=== PATIENT | female | born 1955 | race African-American/Black ===

== ENCOUNTER 2019-05-26 17:31 | Emergency (ER) | payer MEDICARE, MEDICAID ==
[~2019-05-26] VITALS: Ht 165.1 cm; Wt 137.0 kg
[~2019-05-26 17:31] MED LIST: CARI350T28; DICL50TA6; HYDR-1348
[2019-05-26] MEDS ORDERED: HYDROCODONE/APAP 7.5/325MG 1 TAB TABLET PO ONE (19:30)
[2019-05-26] MEDS ORDERED: IBUPROFEN 800MG TABLET PO ONE (19:30)
[2019-05-26] MEDS ORDERED: GABAPENTIN 300MG CAPSULE PO ONE (19:30)
[2019-05-26 19:51] LABS: BASOPHILS % 1.2 % (0.0-2.0); EOSINOPHILS % 1.9 % (0.0-5.0); HEMATOCRIT. 37.8 % (36.0-48.0); HEMOGLOBIN. 12.9 g/dL (12.0-16.0); LYMPHOCYTES % 28.3 % (20.0-50.0); MEAN CORPUSCULAR HEMOGLOBIN 32.9 pg (28.0-32.0); MEAN PLATELET VOLUME 7.3 fl (7.4-10.4); MONOCYTES % 8.6 % (2.0-8.0); PLATELET 233 x1000/uL (130-400); RED BLOOD CELL COUNT 3.94 mill/uL (4.2-5.4); RED CELL DISTRIBUTION WIDTH 13.7 % (11.6-14.6)
[2019-05-26 20:10] LABS: CHLORIDE 106 mEq/L (98-107)
[2019-05-26 23:30] VITALS: BP 136/57
== END 2019-05-27 00:15 ==
LOC: ER 17:31
DX: G62.9 Polyneuropathy, unspecified (principal); M79.605 Pain in left leg; M79.602 Pain in left arm; E11.9 Type 2 diabetes mellitus without complications; I10 Essential (primary) hypertension; Z79.899 Other long term (current) drug therapy
CPT/HCPCS: 36415; 73080; 73590; 80053; 83880; 85025; 93970; 99285

== ENCOUNTER 2020-11-15 19:59 | Emergency (ER) | payer MEDICARE, MEDICAID ==
[~2020-11-15] VITALS: Ht 160 cm; Wt 173.0 kg
[2020-11-15 21:06] LABS: BASOPHILS % 0.6 % (0.0-2.0); EOSINOPHILS % 1.7 % (0.0-5.0); HEMATOCRIT. 37.2 % (36.0-48.0); HEMOGLOBIN. 12.7 g/dL (12.0-16.0); LYMPHOCYTES % 25.9 % (20.0-50.0); MEAN CORPUSCULAR HEMOGLOBIN 33.2 pg (28.0-32.0); MEAN CORPUSCULAR VOLUME 97.3 fL (81.0-99.0); MONOCYTES % 8.5 % (2.0-8.0); NEUTROPHILS % 63.3 % (40.0-76.0); PLATELET 293 x1000/uL (130-400); RED BLOOD CELL COUNT 3.83 mill/uL (4.2-5.4); RED CELL DISTRIBUTION WIDTH 13.9 % (11.6-14.6)
[2020-11-15 21:11] LABS: CHLORIDE 108 mEq/L (98-107)
[2020-11-15] MEDS ORDERED: ACETAMINOPHEN 325MG TABLET PO ONE (23:00)
[2020-11-16 04:25] VITALS: BP 116/53
== END 2020-11-16 04:46 ==
LOC: ER 19:59
DX: M79.672 Pain in left foot (principal); E11.9 Type 2 diabetes mellitus without complications; I10 Essential (primary) hypertension; Z86.73 Personal history of transient ischemic attack (TIA), and cerebral infarction without residual deficits
CPT/HCPCS: 36415; 71045; 80053; 83880; 84484; 85025; 93005; 93971; 99285

== ENCOUNTER 2022-02-27 13:13 | Emergency (ER) | payer MEDICARE, MEDICAID ==
[~2022-02-27] VITALS: Ht 162.6 cm; Wt 160.0 kg
[2022-02-27 16:05] LABS: BASOPHILS % 0.6 % (0.0-2.0); EOSINOPHILS % 0.8 % (0.0-5.0); HEMATOCRIT. 39.1 % (36.0-48.0); HEMOGLOBIN. 13.2 g/dL (12.0-16.0); LYMPHOCYTES % 25.5 % (20.0-50.0); MEAN CORPUSCULAR HEMOGLOBIN 32.3 pg (28.0-32.0); MEAN CORPUSCULAR VOLUME 95.7 fL (81.0-99.0); MEAN PLATELET VOLUME 7.7 fl (7.4-10.4); MONOCYTES % 7.4 % (2.0-8.0); NEUTROPHILS % 65.7 % (40.0-76.0); PLATELET 281 x1000/uL (130-400); RED BLOOD CELL COUNT 4.08 mill/uL (4.2-5.4); RED CELL DISTRIBUTION WIDTH 14.9 % (11.6-14.6)
[2022-02-27 16:14] LABS: CHLORIDE 105 mEq/L (98-107)
[2022-02-28] MEDS ORDERED: ACETAMINOPHEN 325MG TABLET PO ONE (03:00)
[2022-02-28 14:00] VITALS: BP 156/87
== END 2022-02-28 16:10 | disposition home or self-care (01) ==
LOC: ER 13:13
DX: R51.9 Headache, unspecified (principal); R53.1 Weakness; D64.9 Anemia, unspecified; F32.9 Major depressive disorder, single episode, unspecified; E11.9 Type 2 diabetes mellitus without complications; E78.00 Pure hypercholesterolemia, unspecified; I10 Essential (primary) hypertension; Z86.73 Personal history of transient ischemic attack (TIA), and cerebral infarction without residual deficits
CPT/HCPCS: 36415; 71045; 80053; 83880; 84484; 85025; 93005; 99285

== ENCOUNTER 2024-02-05 13:35 | Inpatient (IN) | payer MEDICARE, MEDICAID ==
[~2024-02-05] VITALS: Ht 167.6 cm; Wt 112.0 kg
[2024-02-05] VITALS: BP 143/62; PULSE 80; RESP 18; TEMP 37.11408; O2SAT 100
[~2024-02-05 13:35] MED LIST changes: -CARI350T28; +CLOP75TA33 PO; -DICL50TA6; +DOCU250C14 PO; +FAMO20TA8 PO; -HYDR-1348; +HYDR-4001 MT; +INSLIS SUBCUT; +LACT10SO3 PO; +LIP40 PO; +MELA3TAB40 PO; +METO-539 PO
[2024-02-05 17:06] LABS: BASOPHILS % 0.4 % (0.0-2.0); EOSINOPHILS % 1.4 % (0.0-5.0); HEMOGLOBIN. 9.6 g/dL (12.0-16.0); LYMPHOCYTES % 20.4 % (20.0-50.0); MEAN CORPUSCULAR HEMOGLOBIN 30.7 pg (28.0-32.0); MEAN CORPUSCULAR VOLUME 93.1 fL (81.0-99.0); MEAN PLATELET VOLUME 6.6 fl (7.4-10.4); MONOCYTES % 8.7 % (2.0-8.0); NEUTROPHILS % 69.1 % (40.0-76.0); PLATELET 440 x1000/uL (130-400); RED BLOOD CELL COUNT 3.11 mill/uL (4.2-5.4); RED CELL DISTRIBUTION WIDTH 16.7 % (11.6-14.6); WHITE BLOOD COUNT 8.5 x1000/uL (4.5-11.0)
[2024-02-05 17:11] LABS: CHLORIDE 107 mEq/L (98-107); POTASSIUM 4.2 mEq/L (3.5-5.1); SODIUM 140 mEq/L (136-145)
[2024-02-05 17:12] LABS: CALCIUM 9.4 mg/dL (8.7-10.4); CARBON DIOXIDE 26 mEq/L (21-32)
[2024-02-05 17:17] LABS: CREATININE 0.8 mg/dL (0.6-1.0); GLUCOSE 99 mg/dL (70-105); UREA NITROGEN BLOOD 10 mg/dL (9-23)
[2024-02-05 17:19] LABS: ALANINE AMINOTRANSFERASE 11 IU/L (10-49); ALBUMIN 3.9 g/dL (3.2-4.8); ASPARTATE AMINOTRANSFERASE 19 IU/L (<34); BILIRUBIN TOTAL 0.4 mg/dL (0.1-1.0); PROTEIN TOTAL 7.6 g/dL (6.0-8.3)
[2024-02-05 19:12] LABS: ERYTHROCYTE SEDIMENTATION RATE 114 mm/hr (0-30)
[2024-02-05] MEDS ORDERED: ACETAMINOPHEN 325MG TABLET PO PRN (21:15)
[2024-02-05] MEDS ORDERED: ONDANSETRON HCL 4MG/2ML INJ IV PRN (21:15)
[2024-02-05] MEDS: HYDROCODONE/ACETAMINOPHEN 5/325MG TABLET PO PRN (23:16)
[2024-02-06] VITALS: BP 143/62; PULSE 82; RESP 18; TEMP 37.1408
[2024-02-06] MEDS: MELATONIN 3MG TABLET PO NR (01:15)
[2024-02-06 04:00] VITALS: BP 138/74; PULSE 77; RESP 18; TEMP 36.55848; O2SAT 99
[2024-02-06] MEDS ORDERED: NALOXONE HCL 0.4MG/ML VIAL IV PRN (07:00)
[2024-02-06 08:00] VITALS: BP 151/60; PULSE 72; RESP 19; TEMP 36.61404; O2SAT 99
[2024-02-06 10:39] LABS: BASOPHILS % 0.3 % (0.0-2.0); EOSINOPHILS % 1.5 % (0.0-5.0); HEMATOCRIT. 29.3 % (36.0-48.0); HEMOGLOBIN. 9.1 g/dL (12.0-16.0); LYMPHOCYTES % 20.2 % (20.0-50.0); MEAN CORPUSCULAR HEMOGLOBIN 29.5 pg (28.0-32.0); MEAN CORPUSCULAR HGB CONC 31.2 g/dL (31.0-37.0); MEAN CORPUSCULAR VOLUME 94.6 fL (81.0-99.0); MEAN PLATELET VOLUME 6.9 fl (7.4-10.4); MONOCYTES % 7.3 % (2.0-8.0); NEUTROPHILS % 70.7 % (40.0-76.0); PLATELET 439 x1000/uL (130-400); RED CELL DISTRIBUTION WIDTH 16.5 % (11.6-14.6); WHITE BLOOD COUNT 8.5 x1000/uL (4.5-11.0)
[2024-02-06 11:30] LABS: CHLORIDE 107 mEq/L (98-107); POTASSIUM 3.9 mEq/L (3.5-5.1); SODIUM 140 mEq/L (136-145)
[2024-02-06 11:31] LABS: CARBON DIOXIDE 24 mEq/L (21-32)
[2024-02-06 11:32] LABS: CALCIUM 9.7 mg/dL (8.7-10.4)
[2024-02-06 11:36] LABS: CREATININE 0.8 mg/dL (0.6-1.0); GLUCOSE 132 mg/dL (70-105)
[2024-02-06 11:37] LABS: UREA NITROGEN BLOOD 9 mg/dL (9-23)
[2024-02-06 12:00] VITALS: BP 145/67; PULSE 87; RESP 19; TEMP 36.44736; O2SAT 97
[2024-02-06] MEDS: ENOXAPARIN 120MG/0.8ML SYR SUBCUT NR (13:00)
[2024-02-06] MEDS: METOPROLOL TARTRATE 50MG TABLET PO SCH (14:40)
[2024-02-06] MEDS: CEFTRIAXONE 1GM/50ML 50 ML IV SCH (15:20)
[2024-02-06] MEDS: VANCOMYCIN 1GM PMX (XELLIA) 200 ML IV SCH (15:35)
[2024-02-06 16:00] VITALS: BP 139/78; PULSE 78; RESP 18; TEMP 37.00296; O2SAT 99
[2024-02-06] MEDS: DIPHENHYDRAMINE 25MG CAPSULE PO PRN (16:04)
[2024-02-06] MEDS: DIPHENHYDRAMINE 50MG/ML VIAL IV PRN (16:09)
[2024-02-06 17:30] LABS: INR 1.1
[2024-02-06 20:00] VITALS: BP 146/53; PULSE 65; RESP 19; TEMP 37.05852; O2SAT 100
[2024-02-06] MEDS ORDERED: DEXTROSE 50% WATER 50ML SYRINGE IV PRN (20:30)
[2024-02-06] MEDS: INSULIN LISPRO 100 UNITS/ML SUBCUT SCH (20:42)
[2024-02-06] MEDS: BLOOD SUGAR DIAGNOSTIC STRIP TEST SCH (20:42)
[2024-02-06] MEDS: MELATONIN 3MG TABLET PO SCH (20:42)
[2024-02-06] MEDS: FAMOTIDINE 20MG TABLET PO SCH (20:42)
[2024-02-06] MEDS: PNEUMOCOCCAL 20-VAL CONJ-DIP CRM 0.5ML IM ONE (21:00)
[2024-02-06] MEDS: SODIUM HYPOCHLORITE 0.125% 473ML SOLUTION TOP SCH (21:16)
[2024-02-07] VITALS: BP 138/58; PULSE 74; RESP 19; TEMP 36.50292; O2SAT 99
[2024-02-07 04:00] VITALS: BP 140/60; PULSE 68; RESP 19; TEMP 37.05852; O2SAT 98
[2024-02-07] MEDS: ENOXAPARIN 120MG/0.8ML SYR SUBCUT SCH (05:16)
[2024-02-07 08:00] VITALS: BP 115/51; PULSE 64; RESP 17; TEMP 36.72516; O2SAT 98
[2024-02-07 12:00] VITALS: BP 120/50; PULSE 58; RESP 18; TEMP 36.61404; O2SAT 100
[2024-02-07] MEDS: VANCOMYCIN 1.25GM PMX (XELLIA) 250 ML IV SCH (14:29)
[2024-02-07 16:00] VITALS: BP 138/59; PULSE 57; RESP 18; TEMP 36.61404; O2SAT 98
[2024-02-07 20:00] VITALS: BP 149/71; PULSE 66; RESP 20; TEMP 37.2252; O2SAT 98
[2024-02-08] VITALS: BP 124/58; PULSE 63; RESP 20; TEMP 36.28068; O2SAT 98
[2024-02-08 04:00] VITALS: BP 129/54; PULSE 62; RESP 20; TEMP 36.61404; O2SAT 97
[2024-02-08 08:00] VITALS: BP 139/51; PULSE 59; RESP 19; TEMP 36.28068; O2SAT 100
[2024-02-08 10:16] VITALS: BP 139/51; PULSE 59; TEMP 97.3; O2SAT 100
[2024-02-08 12:00] VITALS: BP 145/50; PULSE 60; RESP 19; TEMP 36.61404; O2SAT 100
[2024-02-08 16:00] VITALS: BP 140/47; PULSE 68; RESP 18; TEMP 36.33624; O2SAT 99
== END 2024-02-08 17:30 | DRG 380 ==
LOC: ER 13:35 → EDBEDREQ 19:37 → EDBEDREQTM 19:37 → 6EST 23:30
PROVIDERS: ADMIT Internal Medicine Nephrology; ATTEND Internal Medicine Nephrology
DX: E11.69 Type 2 diabetes mellitus with other specified complication (principal); L89.224 Pressure ulcer of left hip, stage 4; I50.9 Heart failure, unspecified; I69.954 Hemiplegia and hemiparesis following unspecified cerebrovascular disease affecting left non-dominant side; M86.8X8 Other osteomyelitis, other site; I11.0 Hypertensive heart disease with heart failure; B19.20 Unspecified viral hepatitis C without hepatic coma; D64.9 Anemia, unspecified; E66.9 Obesity, unspecified; K21.9 Gastro-esophageal reflux disease without esophagitis; Z96.643 Presence of artificial hip joint, bilateral; I48.0 Paroxysmal atrial fibrillation; E78.5 Hyperlipidemia, unspecified; I25.10 Atherosclerotic heart disease of native coronary artery without angina pectoris; Z79.01 Long term (current) use of anticoagulants; Z79.02 Long term (current) use of antithrombotics/antiplatelets; Z79.4 Long term (current) use of insulin; Z79.899 Other long term (current) drug therapy; Z68.39 Body mass index [BMI] 39.0-39.9, adult
CPT/HCPCS: 36415; 73502; 73721; 80048; 80053; 82962; 83036; 85025; 85651; 90732; 93970; 99285; C1893; J0696; J1650; J1815; J3370; Q0163